=== PATIENT | female | born 2000 | race Two or more races ===

== ENCOUNTER → 2025-07-21 | Outpatient (CLI) | payer MEDICAID, SELFPAY ==
--- NOTE | 2025-07-21 12:30 | XR_ITS ---
Examination: Complete OB ultrasound greater than 14 weeks Date and time of exam: July 21, 2025 1304 hours INDICATIONS: Encounter for supervision of normal unspecified Findings: Viable intrauterine single fetus with single amniotic sac presentation cephalic spine maternal right Cardiac motion 155 BPM Placenta anterior grade 2 Vocal cord insertion seen Amniotic fluid index 12.3 cm Cervix 4.4 cm Ovaries obscured by bowel gas. Composite estimated gestational age based on BPD, head circumference, abdominal circumference, femur length is 29 weeks 4 days Estimated weight 1312.3 g. Survey of intracranial anatomy, spinal anatomy, abdominal anatomy, four-chamber heart performed with no abnormalities identified. Impression: Viable intrauterine gestation cephalic presentation.
== END | disposition home or self-care (01) ==
PROVIDERS: PCP Family Medicine; Referring Provider Obstetrics & Gynecology; Visit Provider Obstetrics & Gynecology
DX: Z34.92 Encounter for supervision of normal pregnancy, unspecified, second trimester (principal); Z3A.29 29 weeks gestation of pregnancy
CPT/HCPCS: 76805

== ENCOUNTER 2025-08-07 14:23 | Outpatient (AMB) | payer MEDICAID, SELFPAY ==
--- NOTE | 2025-08-07 14:29 | OBCLNT_ITS ---
Vital Signs 08/07/25 14:34 Height 1.7 m Height Method Stated Weight 94.064 kg Weight Measurement Method Standing Scale BMI 32.4 BP 105/68 Blood Pressure Source Automatic Cuff Blood Pressure Location Right Upper Arm Position Sitting Respiration 17 Pulse 76 Pulse Source Monitor Temp 97.6 F Temp Source Temporal Artery Scan Pulse Oximetry (%) 96 Oxygen Delivery Method Room Air Allergies/Home Meds Allergies & Medications Allergies No Known Allergies Allergy (Verified 08/07/25 14:35) Intake Visit Data Collection New Patient or Established: Established Patient (seen at [facility] within 3 years) Reason for Visit:: OB TRANSFER Seen by Clinical Staff ONLY (RN/MA): No Hotel Custodian Required: No Do You Feel Safe at Home: Yes Authorities Contacted: N/A PCP or OBGYN visit in last 3 months: No Hx Now: Yes Are you currently on any form of Control: No Last menstrual period: 12/31/24 Pain Present Currently: No Pain Scale Used: Talley-Garvin/Numerical Pain scale:: 0 Smoking Status Smoking Status: Never smoker Questionnaires Covid-19 Vaccine Questionnaire Has patient been vacinated for Covid-19 Have you been vacinated for Covid-19: Yes PHQ-9 PHQ-2 Over the last 2 weeks, how often have you been bothered by any of the following problems? 1. Little interest or pleasure in doing things: not at all 2. Feeling down, depressed, or hopeless: not at all Total score: 0 PHQ-9 3. Trouble falling or staying asleep, or sleeping too much: Not at all 4. Feeling tired or having little energy: Not at all 5. Poor appetite or overeating: Not at all 6. Feeling bad about yourself - or that you are a failure or have let yourself or your family down: Not at all 7. Trouble concentrating on things, such as reading the newspaper or watching television: Not at all 8. Moving or speaking so slowly that other people could have noticed? - Or the opposite - being so fidgety or restless that you have been moving around a lot more than usual: not at all 9. Thoughts that you would be better off or of hurting yourself in some way: Not at all Total score: 0 If you checked off any problems, how difficult have these problems made it for you to do your work, take care of things at home, or get along with other people?: not difficult at all Source: Developed by Drs. Efraín Campbell, Deirdre Garcia, Cirilo Graham and colleagues, with an educational marcelino from [employer]. Depression screen completed yes Social History Living Situation History Marital Status: Single Lives With: Family Housing: House Tobacco History Smoking Status: Never smoker Second Hand Smoke Exposure: No Alcohol History Alcohol Intake: Never Domestic Abuse History Do You Feel Safe at Home: Yes History of Present Illness HPI Narrative 25-year-old 4 para 1 for OBI. Patient is a transfer from [facility] with records. Her last period December 31, 2024. Estimated due date October 09, 2025. Patient has pretty sure dates she had 1 ultrasound here at [facility] OB. On 07/21/2025 patient was 29 weeks 4 and this confirms EDC of October 09, 2025. Patient reports movement. She denies social habits. Denies chronic illness. Patient had a lap abiodun. It was uncomplicated. History of chlamydia with the . She was treated with Zithromax. Father the baby is not involved and was not treated. Patient is O+, antibody screen negative, RPR nonreactive, rubella immune, hepatitis B negative, hep C negative, HIV negative, GC and Chlamydia test of cure in June were n egative. Her AFP, NIPT and carrier screens all negative. 1 hour GTT was 134 and her RPR at that time was nonreactive. A1c 5.3. And her H&H was 11.4 and 34. 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 History Past Medical History: No Hx Neurological Disorders, No Hx Cardiac Disorders, No Hx Cancer, No Hx Blood Disorders, Yes Hx Anemia (DURING ), Yes Hx Gastrointestinal Disorders, No Hx Renal Disease, No Hx Diabetes Mellitus Type 1 and No Hx Diabetes Mellitus Type 2 OB Initial Visit Menstrual History Menstrual reliability: unknown Flow: normal Menstrual regularity: irregular Monthly: No Age at menarche: 13 On control pills at conception: No OB History : 4 Para: 1 Hx Total # of Abortions (Spontaneous & Elective): 2 # of Living Children: 1 Delivery History 1st : Child's name: SMILEY STANLEY date: 03/[birth year] sex: male Gestational age at delivery (weeks): 37 Delivery type: vaginal History of depression before or after : No Infection History & Risk Evaluation History of STDs: none Patient or partner has history of Genital Herpes: No Genetic Screening & History Genetic Screening/Teratology Counseling - Includes patient, baby's father, or anyone in either family with: 1. Patient's age 35 years or older as of estimated date of delivery: No 2. Thalassemia (Macedonian, Hebrew, Mediterranean, or Background); MCV less than 80: No 3. Neural Tube Defect (Meningomyelocele, Spina Bifida, or Anencephaly): No 4. Congenital Heart Defect: No 5. Down Syndrome: No 6. Bipin-Sachs (Ashkenazi Oriental Orthodox, Cajun, Sudanese Lester): No 7. Sarah Disease (Ashkenazi Oriental Orthodox): No 8. Familial Dysautonomia (Ashkenazi Oriental Orthodox): No 9. Sickle Cell Disease or Trait (): No 10. Hemophilia or other blood disorders: No 11. Muscular Dystrophy: No 12. Cystic Fibrosis: No 13. Karol's Chorea: No 14. Mental Retardation/Autism: No 15. Other inherited genetic or chromosomal disorder: No 16. Maternal Metabolic Disorder (EG,TYPE 1 Diabetes, PKU): No 17. Patient or baby's father had a child with defects not listed above: No 18. Recurrent loss or a stillbirth: No 19. Medications (including supplements, vitamins, herbs or otc drugs)/illicit/re creational drugs/alcohol since last menstrual period: No 20. Any other: No Infection History 1. Live with someone with TB or exposed to TB: No 2. Rash or viral illness since last menstrual period: No 3. Hepatitis B,C: No Other (see comments) Source: [employer] Review of Systems Review of Systems Systems Reviewed: All systems reviewed, normal except as documented Exam General Limitations: no limitations General Appearance: alert, in no apparent distress, comfortable, cooperative, healthy appearing, well developed and well groomed Head Head exam: atraumatic, normocephalic and normal inspection Neck Neck exam: Present normal inspection, full ROM and trachea midline Chest Chest inspection: Present normal inspection and symmetric chest wall rise Resp Respiratory exam: Present normal lung sounds bilaterally Abdominal Abdominal exam: Present soft and normal bowel sounds Psych Psychiatric exam: Present normal affect and normal mood Office Procedures OBC Clinic LOC & Office Proc's Nursing/Assessment Patient Status: Established Patient OB Clinic Nursing Assessment: Medication Reconciliation, Update PMH in EMR and Vital Signs OB Clinic Coordination of Care: Complex Care and Chronic Disease 1-5, Consent,records obtained, informed consent, Education Simp Pt/Fam, Results/Orders obtained and Staff clarify orders Special Needs: Heart tones Established Patient Charge Established Patient Point Assignment: 120 Established Patient Point Charge: EP Level 4 (120-155) Assessment & Plan Diagnosis / Problem List (1) Encounter for supervision of high risk in third trimester, antepartum: Status: Acute Plan Discussed labs and dating. Continue prenatals. I offered Tdap and patient declined. Discussed labor precautions. Increase fluids and return in 2 weeks for OB check
[2025-08-07 14:34] VITALS: BP 105/68; PULSE 76; RESP 17; TEMP 36.4; O2SAT 96; BMI 32.4
== END 2025-08-07 15:11 | disposition home or self-care (01) ==
LOC: HODSOBC 14:23
PROVIDERS: PCP Family Medicine; Referring Provider Family Medicine; Supervising Provider Advanced Practice Midwife; Visit Provider Advanced Practice Midwife
DX: O09.93 Supervision of high risk pregnancy, unspecified, third trimester (principal); Z3A.00 Weeks of gestation of pregnancy not specified; Z28.21 Immunization not carried out because of patient refusal
CPT/HCPCS: 99214; G0463

== ENCOUNTER 2025-08-21 11:13 | Outpatient (AMB) | payer MEDICAID, SELFPAY ==
[2025-08-21 11:25] VITALS: BP 106/71; PULSE 98; RESP 18; TEMP 36.6; O2SAT 96; BMI 33.2
--- NOTE | 2025-08-21 11:25 | AMB.OBVISIT ---
Vital Signs 08/21/25 11:25 Height 1.7 m Height Method Stated Weight 95.935 kg Weight Measurement Method Standing Scale BMI 33.2 BP 106/71 Blood Pressure Source Automatic Cuff Blood Pressure Location Left Upper Arm Position Sitting Respiration 18 Pulse 98 Pulse Source Monitor Temp 97.9 F Temp Source Oral Pulse Oximetry (%) 96 Oxygen Delivery Method Room Air Allergies/Home Meds Allergies & Medications Allergies No Known Allergies Allergy (Verified 08/21/25 11:30) Medication Reconciliation No Known Home Medications 08/21/25 [History Confirmed 08/21/25] Intake Visit Data Collection New Patient or Established: Established Patient (seen at [facility] within 3 years) Reason for Visit:: CARE Seen by Clinical Staff ONLY (RN/MA): No Shuffle Board Operator Required: No Do You Feel Safe at Home: Yes Authorities Contacted: N/A PCP or OBGYN visit in last 3 months: Yes Hx Now: Yes Are you currently on any form of Control: No Pain Present Currently: No Pain Scale Used: Talley-Garvin/Numerical Pain scale:: 0 Smoking Status Smoking Status: Never smoker Immunizations Flu Vaccine in the Last 12 Months: No Flu Vaccine Exclusion Criteria: Refused by Patient Questionnaires Covid-19 Vaccine Questionnaire Has patient been vacinated for Covid-19 Have you been vacinated for Covid-19: Yes PHQ-9 PHQ-2 Over the last 2 weeks, how often have you been bothered by any of the following problems? 1. Little interest or pleasure in doing things: not at all 2. Feeling down, depressed, or hopeless: not at all Total score: 0 PHQ-9 3. Trouble falling or staying asleep, or sleeping too much: Not at all 4. Feeling tired or having little energy: Not at all 5. Poor appetite or overeating: Not at all 6. Feeling bad about yourself - or that you are a failure or have let yourself or your family down: Not at all 7. Trouble concentrating on things, such as reading the newspaper or watching television: Not at all 8. Moving or speaking so slowly that other people could have noticed? - Or the opposite - being so fidgety or restless that you have been moving around a lot more than usual: not at all 9. Thoughts that you would be better off or of hurting yourself in some way: Not at all Total score: 0 Source: Developed by Drs. Efraín Campbell, Deirdre Garcia, Cirilo Graham and colleagues, with an educational marcelino from [employer]. 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 Last. December 31, 2024. Estimated due date October 09, 2025. Reports movement. Denies leaking or bleeding. She has no interval complaints at this time. Denies Tdap Discussed labor precautions. Increase fluids. Discussed dates. Return in 2 weeks for OB check. Discussed safe sex 08/21/25 <del>?</del> 33w 2d 95.935 kg 106/71 absent cephalic 33 145 active Increased pressure. Denies leaking, bleeding, contractions. Reports good movement. Discussed kick count twice a day. Increase fluids. Continue prenatals. GBS next visit. Return in 2 weeks OB check LATIA Calculator Estimated Delivery Date Method Current WG Current Estimate 10/07/25 LMP (Certain) 33w 2d Other Estimates 10/02/25 Ultrasound #1 34w 0d Notes Visit Date: 08/07/25 Last Updated by: Ana Blair CNM 25 yo . lmp 12/31/24. EDC: 10/09/25 OB: O+,abs-, rpr;;nr, rub imm, hbsag-, hiv-, HC-, 07/07: GC/CT-. UT-, A1: 5.3, , NIPT/AFP carrier screen- Office Procedures OBC Clinic LOC & Office Proc's Nursing/Assessment Patient Status: Established Patient OB Clinic Nursing Assessment: Medication Reconciliation, Update PMH in EMR and Vital Signs OB Clinic Coordination of Care: Complex Care and Chronic Disease 1-5, Consent,records obtained, informed consent, Education Simp Pt/Fam, Lab and Imaging orders, Results/Orders obtained and Staff clarify orders Special Needs: Heart tones Established Patient Charge Established Patient Point Assignment: 135 Established Patient Point Charge: EP Level 4 (120-155) Assessment & Plan Diagnosis / Problem List (1) Encounter for supervision of high risk in third trimester, antepartum: Status: Acute Plan Discussed labor precautions. Kick count twice a day. Increase fluids. GBS next visit. Return in 2 weeks OB check Additional Plan Follow Up: 2 Weeks (obc)
== END 2025-08-21 12:04 | disposition home or self-care (01) ==
LOC: HODSOBC 11:13
PROVIDERS: Supervising Provider Advanced Practice Midwife; Visit Provider Advanced Practice Midwife
DX: O09.93 Supervision of high risk pregnancy, unspecified, third trimester (principal); Z3A.33 33 weeks gestation of pregnancy
CPT/HCPCS: 99214; G0463

== ENCOUNTER 2025-09-14 09:57 | Outpatient (AMB) | payer MEDICAID, SELFPAY ==
[2025-09-14 10:04] VITALS: BP 100/67; PULSE 100; RESP 18; TEMP 36.6; O2SAT 96; BMI 34.1
--- NOTE | 2025-09-14 10:04 | OBCLNT_ITS ---
Vital Signs 09/14/25 10:04 Height 1.7 m Height Method Stated Weight 98.656 kg Weight Measurement Method Standing Scale BMI 34.1 BP 100/67 Blood Pressure Source Automatic Cuff Blood Pressure Location Right Upper Arm Position Sitting Respiration 18 Pulse 100 Pulse Source Monitor Temp 97.8 F Temp Source Temporal Artery Scan Pulse Oximetry (%) 96 Oxygen Delivery Method Room Air Allergies/Home Meds Allergies & Medications Allergies No Known Allergies Allergy (Verified 09/14/25 10:05) Medication Reconciliation ferrous sulfate 325 mg (65 mg iron) tablet (Iron (ferrous sulfate)) 325 mg PO BID #60 tabs 09/03/25 [Rx Confirmed 09/14/25] Intake Visit Data Collection New Patient or Established: Established Patient (seen at [facility] within 3 years) Reason for Visit:: OBC Seen by Clinical Staff ONLY (RN/MA): No Parliamentary Counsel Required: No Do You Feel Safe at Home: Yes Authorities Contacted: N/A PCP or OBGYN visit in last 3 months: Yes Date of Last PCP or OBGYN visit: 09/03/25 Hx Now: Yes Are you currently on any form of Control: No Pain Present Currently: No Pain Scale Used: Talley-Garvin/Numerical Pain scale:: 0 Smoking Status Smoking Status: Never smoker Immunizations Flu Vaccine in the Last 12 Months: No Flu Vaccine Exclusion Criteria: Refused by Patient Questionnaires Covid-19 Vaccine Questionnaire Has patient been vacinated for Covid-19 Have you been vacinated for Covid-19: No PHQ-9 PHQ-2 Over the last 2 weeks, how often have you been bothered by any of the following problems? 1. Little interest or pleasure in doing things: not at all 2. Feeling down, depressed, or hopeless: not at all Total score: 0 PHQ-9 3. Trouble falling or staying asleep, or sleeping too much: Not at all 4. Feeling tired or having little energy: Not at all 5. Poor appetite or overeating: Not at all 6. Feeling bad about yourself - or that you are a failure or have let yourself or your family down: Not at all 7. Trouble concentrating on things, such as reading the newspaper or watching television: Not at all 8. Moving or speaking so slowly that other people could have noticed? - Or the opposite - being so fidgety or restless that you have been moving around a lot more than usual: not at all 9. Thoughts that you would be better off or of hurting yourself in some way: Not at all Total score: 0 If you checked off any problems, how difficult have these problems made it for you to do your work, take care of things at home, or get along with other people?: not difficult at all Source: Developed by Drs. Efraín Campbell, Deirdre Garcia, Cirilo Graham and colleagues, with an educational marcelino from [employer]. 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 Last. December 31, 2024. Estimated due date October 09, 2025. Reports movement. Denies leaking or bleeding. She has no interval complaints at this time. Denies Tdap Discussed labor precautions. Increase fluids. Discussed dates. Return in 2 weeks for OB check. Discussed safe sex 08/21/25 -?-?-?-?-?-?-?-?-?-?-?-?- 33w 2d 95.935 kg 106/71 absent cephalic 33 145 active Increased pressure. Denies leaking, bleeding, contractions. Reports good movement. Discussed kick count twice a day. Increase fluids. Continue prenatals. GBS next visit. Return in 2 weeks OB check 09/03/25 -?-?-?-?-?-?-?-?-?-?-?-?- 35w 1d 97.976 kg 114/71 absent cephalic 35 145 active No complaints of pain. Occasional contraction. Denies leaking. Reports good movement GBS today. Iron twice a day ordered. Increase iron foods. Discussed kick count twice a day. And return in 2 weeks OB check 09/14/25 -?-?-?-?-?-?-?-?-?-?-?-?- 36w 5d 98.656 kg 100/67 absent cephalic 36 140 active no complaints of UC,bleeding or leaking. reports good movement review GBS, discuss labor precaution, fkc bid, discuss danger s/s and ER precaution LATIA Calculator Estimated Delivery Date Method Current WG Current Estimate 10/07/25 LMP (Certain) 36w 5d Other Estimates 10/02/25 Ultrasound #1 37w 3d 10/07/25 Manual 36w 5d final latia: 09/28 Notes Visit Date: 09/14/25 Last Updated by: Ana Blair CNM 09/14: gbs- Visit Date: 09/03/25 Last Updated by: Ana Blair CNM 07/09: , 1 hr gtt wnl, rpr;;nr Visit Date: 08/07/25 Last Updated by: Ana Blair CNM 25 yo . lmp 12/31/24. EDC: 10/09/25 OB: O+,abs-, rpr;;nr, rub imm, hbsag-, hiv-, HC-, 07/07: GC/CT-. UT-, A1: 5.3, , NIPT/AFP carrier screen- Office Procedures OBC Clinic LOC & Office Proc's Nursing/Assessment Patient Status: Established Patient OB Clinic Nursing Assessment: Medication Reconciliation, Update PMH in EMR and Vital Signs OB Clinic Coordination of Care: Complex Care and Chronic Disease 1-5, Education Complex Pt/Fam, Consent,records obtained, informed consent, Lab and Imaging orders, Results/Orders obtained and Staff clarify orders Special Needs: Heart tones Established Patient Charge Established Patient Point Assignment: 140 Established Patient Point Charge: EP Level 4 (120-155) Assessment & Plan Diagnosis / Problem List (1) Encounter for supervision of high risk in third trimester, antepartum: Status: Acute Plan discuss labor precaution, fkc bid, danger s/s and ER precaution. rtc 1 week obc Additional Plan Follow Up: 1 Week (obc)
== END 2025-09-14 10:18 | disposition home or self-care (01) ==
LOC: HODSOBC 09:57
PROVIDERS: Supervising Provider Advanced Practice Midwife; Visit Provider Advanced Practice Midwife
DX: O09.93 Supervision of high risk pregnancy, unspecified, third trimester (principal); Z3A.36 36 weeks gestation of pregnancy
CPT/HCPCS: 99214; G0463

== ENCOUNTER 2025-09-22 16:20 | Observation (INO) | payer MEDICAID, SELFPAY ==
[2025-09-22] VITALS (11 sets, daily range): BP systolic 121; BP diastolic 75; PULSE 79–92; RESP 17–98; TEMP 36.8; O2SAT 97–98; BMI 34.6
[2025-09-22 17:06] LABS: ROM Kit Exp Date# 04/11/28; ROM Kit Lot # 58106258; ROM Swab Mixed By: CA; Swb Mxed in Solvent 1 min? Yes
[2025-09-22 17:07] LABS: Rupture of Fetal Membranes Negative (Negative)
== END 2025-09-22 17:25 | disposition home or self-care (01) ==
PROVIDERS: Admitting Provider Advanced Practice Midwife; Visit Provider Advanced Practice Midwife
DX: Z34.83 Encounter for supervision of other normal pregnancy, third trimester (principal); Z3A.37 37 weeks gestation of pregnancy
CPT/HCPCS: 59025; 59899; 84112

== ENCOUNTER 2025-09-23 10:45 | Outpatient (AMB) | payer MEDICAID, SELFPAY ==
[2025-09-23 11:07] VITALS: BP 115/72; PULSE 103; RESP 18; TEMP 36.2; O2SAT 98
--- NOTE | 2025-09-23 11:07 | OBCLNT_ITS ---
Vital Signs 09/23/25 11:07 Weight 100.811 kg Weight Measurement Method Standing Scale BP 115/72 Blood Pressure Source Automatic Cuff Blood Pressure Location Left Upper Arm Position Sitting Respiration 18 Pulse 103 H Pulse Source Monitor Temp 97.2 F Temp Source Oral Pulse Oximetry (%) 98 Oxygen Delivery Method Room Air Allergies/Home Meds Allergies & Medications Allergies No Known Allergies Allergy (Verified 09/23/25 11:08) Medication Reconciliation ferrous sulfate 325 mg (65 mg iron) tablet (Iron (ferrous sulfate)) 325 mg PO BID #60 tabs 09/03/25 [Rx Confirmed 09/23/25] Immunizations Immunizations Flu Vaccine in the Last 12 Months: No Flu Vaccine Exclusion Criteria: No Exclusion Criteria Care OB Visit Log OB Flowsheet Initial Weight: Not Recorded Date -?-?-?-?-?-?-?-?-?-?-?-?- EGA Weight BP Alb Glu CTX Pres Fundal ht FHR Mov Dilation Station Effacement Hx Notes Visit Note 08/07/25 -?-?-?-?-?-?-?-?-?-?-?-?- 31w 2d 94.064 kg 105/68 absent unknown 30 145 active 25-year-old 4 para 1 for OBI. Last. December 31, 2024. Estimated due date October 09, 2025. Reports movement. Denies leaking or bleeding. She has no interval complaints at this time. Denies Tdap Discussed labor precautions. Increase fluids. Discussed dates. Return in 2 weeks for OB check. Discussed safe sex 08/21/25 -?-?-?-?-?-?-?-?-?-?-?-?- 33w 2d 95.935 kg 106/71 absent cephalic 33 145 active Increased pressure. Denies leaking, bleeding, contractions. Reports good movement. Discussed kick count twice a day. Increase fluids. Continue prenatals. GBS next visit. Return in 2 weeks OB check 09/03/25 -?-?-?-?-?-?-?-?-?-?-?-?- 35w 1d 97.976 kg 114/71 absent cephalic 35 145 active No complaints of pain. Occasional contraction. Denies leaking. Reports good movement GBS today. Iron twice a day ordered. Increase iron foods. Discussed kick count twice a day. And return in 2 weeks OB check 09/14/25 -?-?-?-?-?-?-?-?-?-?-?-?- 36w 5d 98.656 kg 100/67 absent cephalic 36 140 active no complaints of UC,bleeding or leaking. reports good movement review GBS, discuss labor precaution, fkc bid, discuss danger s/s and ER precaution LATIA Calculator Estimated Delivery Date Method Current WG Current Estimate 10/07/25 LMP (Certain) 38w 0d Other Estimates 10/02/25 Ultrasound #1 38w 5d 10/07/25 Manual 38w 0d final latia: 09/28 Notes Visit Date: 09/14/25 Last Updated by: Ana Blair CNM 09/14: gbs- Visit Date: 09/03/25 Last Updated by: Ana Blair CNM 07/09: , 1 hr gtt wnl, rpr;;nr Visit Date: 08/07/25 Last Updated by: Ana Blair CNM 25 yo . lmp 12/31/24. EDC: 10/09/25 OB: O+,abs-, rpr;;nr, rub imm, hbsag-, hiv-, HC-, 07/07: GC/CT-. UT-, A1: 5.3, , NIPT/AFP carrier screen- Office Procedures OBC Clinic LOC & Office Proc's Nursing/Assessment Patient Status: Established Patient OB Clinic Nursing Assessment: Medication Reconciliation, Update PMH in EMR and V ital Signs OB Clinic Coordination of Care: Consent,records obtained, informed consent, Education Simp Pt/Fam, Lab and Imaging orders, Results/Orders obtained and Staff clarify orders Special Needs: Heart tones Established Patient Charge Established Patient Point Assignment: 110 Established Patient Point Charge: EP Level 3 (80-115) Assessment & Plan Diagnosis / Problem List (1) Encounter for supervision of high risk in third trimester, antepartum: Status: Acute Plan Labor precautions twice a day. Discussed kick count. Continue prenatals. Increase fluids. Return week OB check
== END 2025-09-23 11:43 | disposition home or self-care (01) ==
LOC: HODSOBC 10:45
PROVIDERS: Supervising Provider Advanced Practice Midwife; Visit Provider Advanced Practice Midwife
DX: O09.93 Supervision of high risk pregnancy, unspecified, third trimester (principal); Z3A.38 38 weeks gestation of pregnancy
CPT/HCPCS: 99213; G0463

== ENCOUNTER 2025-09-25 22:16 | Emergency (ER) | payer MEDICAID, SELFPAY ==
[2025-09-25 22:18] VITALS: BMI 34.4
[2025-09-25 22:39] VITALS: BP 117/78; PULSE 77; RESP 18; TEMP 36.7; O2SAT 98
--- NOTE | 2025-09-25 22:59 | PD.EDURI ---
Upper Respiratory Inf. RME/HPI General Chief Complaint: General Adult/Misc Complain Stated Complaint: EPISODE OF COUGH AND NOSE BLEED Time Seen by Provider: 09/25/25 22:45 Arrival date/time: 09/25/25 22:16 25F with no significant PMH presents to ED with several days of cough, nasal congestion, and some nosebleed. Patient is 38 weeks , but denies ab pain and vaginal bleeding. No sore throat. Limitations: no limitations Related Data Previous Rx's ?Medication ?Instructions ?Recorded ferrous sulfate 325 mg (65 mg 325 mg PO BID #60 tabs 09/03/25 iron) tablet (Iron (ferrous sulfate)) Allergies Allergy/AdvReac Type Severity Reaction Status Date / Time No Known Allergies Allergy Verified 09/23/25 11:08 Review of Systems Review of Systems Systems Reviewed: All systems reviewed, normal except as documented ENT Ears, Nose, Mouth, and Throat: Reports as per HPI, Reports epistaxis and Reports nasal congestion Respiratory Respiratory: Reports as per HPI and Reports cough Past Medical History Past Medical History NEUROLOGIC: Negative Neurological Disorders CARDIAC: Negative Cardiac Disorders or Congestive Heart Failure RESPIRATORY: Negative Chronic Obstructive Pulmonary Disease (COPD) GASTROINTESTINAL: Positive Gastrointestinal Disorders and Gall Bladder Disease; Negative Hepatitis GENITOURINARY: Negative Genitourinary Disorders or Renal Disease REPRODUCTIVE: Negative Pelvic Inflammatory Disease MUSCULOSKELETAL: Negative Musculoskeletal Disorders ENDOCRINE: Negative Endocrine Disorders, Diabetes Mellitus Type 1 or Diabetes Mellitus Type 2 HEMATOLOGIC: Positive Anemia (DURING ); Negative Blood Disorders OTHER HISTORY: Negative Hospitalization, Autoimmune Disease, Down Syndrome, Developmental Delay, Shingles, Falls, Blood Transfusions, Blood Transfusion Reaction, Anesthesia Reactions, Organ Transplant, Chemotherapy, Radiation Therapy, Hyperbaric Therapy, MRSA, VRSA, Vancomycin-Resistant Enterococci, Human Immunodeficiency Virus (HIV), Chicken Pox, Measles, Mumps, Rubella (Spanish Measles), Pertussis, Clostridium Difficile or Cancer Family History FAMILY HISTORY: Positive Family Respiratory Disorders (GRANDPA WITH WATER IN LUNGS), Family Gastrointestinal Problems (GALLBLADDER) and Family Cancer (2 AUNTS); Negative Family Psychiatric Problems, Family Cardiac Disorders, Family Surgery (UNSURE) or Family Anesthesia Reaction Surgical History SURGICAL: Negative Section or Organ Transplant Social History SMOKING STATUS: Never smoker SECOND HAND EXPOSURE: No SUBSTANCE USE: does not use ED Exam General Limitations: Present no limitations General appearance: Present alert and in no apparent distress Head Head exam: Present atraumatic ENT ENT exam: Present normal oropharynx and mucous membranes moist Expanded ENT Exam Nasal speculum exam: Bilateral: epistaxis (raw skin, no active bleeding) Neck Neck exam: Present normal inspection, full ROM and trachea midline Chest Chest inspection: Present normal inspection and symmetric chest wall rise Respiratory Respiratory exam: Present normal lung sounds bilaterally Neurological Exam Neurological exam: Present alert and oriented X3 Psychiatric Psychiatric exam: Present normal affect and normal mood Skin Skin exam: Present warm, dry, intact and normal color Course Quality Measures none Orders Category Date Time Status COVID-19 Antigen (In-House) Stat Lab 09/25/25 22:59 Completed Influenza A & B Rapid Panel Stat Lab 09/25/25 22:59 Completed Vital Signs Vital signs: Vital Signs Temperature 98.1 F 09/25/25 22:39 Pulse Rate 77 09/25/25 22:39 Respiratory Rate 18 09/25/25 22:39 Blood Pressure 117/78 09/25/25 22:39 Pulse Oximetry (%) 98 09/25/25 22:39 Oxygen Delivery Method Room Air 09/25/25 22:39 O2 at 98% on RA and WNLs Upper Respiratory Infection MDM Narrative MDM Narrative:: 25F with no significant PMH presents to ED with several days of cough, nasal congestion, and some nosebleed. Patient is 38 weeks , but denies ab pain and vaginal bleeding. No sore throat. Physical exam reveals some raw skin in nares. No active bleeding. Clear oropharynx and lungs. Normal WOB. Patient declines preemptive nasal cauterization. Swabs neg. Waste And Batting Waste Chopper given. Patient data External records reviewed:: [facility] previous records Clinical information provided by:: patient Social determinants that could affect healthcare access:: none Patient has the following chronic illnesses:: none How is presenting disease/condition affected by chronic disease/condition?: no chronic disease Evaluation data The following diagnostics were reviewed and interpreted by me:: lab results Lab and/or radiology exams considered but not ordered:: ordered Interpretation Summary: above Medications / Prescriptions Medications or Prescriptions considered but not ordered:: not ordered Medication administrations:: n/a Consultations Consultation(s) initiated? (list below): No Diagnosis Upper Respiratory Differential Diagnosis: upper respiratory infection, croup, otitis media, sinusitis, viral infection, bronchitis, influenza, pharyngitis and other (epistaxis) Most likely diagnosis given after review of the tests above:: URI and epistaxis Admission Indicated Admission indicated?: not indicated Admission Request Was there a request for admission?: No Disposition Plan Disposition Plan: Discharge Discharge Attestation Discharge Attestation: The patient and all family members were given an opportunity to ask questions and understood the discharge instructions. Discharge instructions specifically effects, indications for sooner follow up or return to the emergency department, and the expected course of current diagnosis. Patient condition: Stable Discharge Plan Plan Patient Disposition: HOME (Self Care) Discharge Disposition comment: Stable Prescriptions/Referrals Prescriptions/Med Rec: No Action ferrous sulfate [Iron (ferrous sulfate)] 325 mg (65 mg iron) tablet 325 mg PO BID Qty: 60 3RF Referrals: Kenzie Abreu PA-C [Primary Care Provider] - In 1 week Problem List Clinical Impression: URI (upper respiratory infection), Epistaxis Patient/Caregiver Discharge Instructions Education Materials: ED Epistaxis (Adult), ED URI, Viral, No Abx (Adult) Additional Instructions: Please follow-up with PCP within 24-48 hours and return immediately if symptoms worsen. Benadryl is good for cough, congestion, and sleep. Keep hydrated. Advance diet as tolerated. Print Language: Icelandic Stand Alone Forms: Patient Portal Info Letter MAX/KUMAR Supervising Physician MAX/KUMAR Supervising Physician: Dr. Medina
[2025-09-25 23:38] LABS: COVID-19 Antigen (In-House) Negative (Negative); Influenza A Ag Negative; Influenza B Ag Negative
[2025-09-25 23:43] VITALS: RESP 16
== END 2025-09-25 23:44 | disposition home or self-care (01) ==
PROVIDERS: Physician Assistant; Emergency Provider Emergency Medicine; PCP Physician Assistant
DX: O26.893 Other specified pregnancy related conditions, third trimester (principal); R04.0 Epistaxis; O99.513 Diseases of the respiratory system complicating pregnancy, third trimester; J06.9 Acute upper respiratory infection, unspecified; Z3A.38 38 weeks gestation of pregnancy
CPT/HCPCS: 87502; 87811; 99281

== ENCOUNTER 2025-09-29 13:46 | Outpatient (AMB) | payer MEDICAID, SELFPAY ==
--- NOTE | 2025-09-29 14:14 | OBCLNT_ITS ---
Vital Signs 09/29/25 14:15 Height 1.7 m Height Method Stated Weight 101.605 kg Weight Measurement Method Standing Scale BMI 35.2 BP 123/74 Blood Pressure Source Automatic Cuff Blood Pressure Location Left Upper Arm Position Sitting Respiration 18 Pulse 84 Pulse Source Monitor Temp 97.2 F Temp Source Oral Pulse Oximetry (%) 98 Oxygen Delivery Method Room Air Allergies/Home Meds Allergies & Medications Allergies No Known Allergies Allergy (Verified 09/29/25 14:15) Medication Reconciliation ferrous sulfate 325 mg (65 mg iron) tablet (Iron (ferrous sulfate)) 325 mg PO BID #60 tabs 09/03/25 [Rx Confirmed 09/29/25] Immunizations Immunizations Flu Vaccine in the Last 12 Months: No Flu Vaccine Exclusion Criteria: No Exclusion Criteria Care OB Visit Log OB Flowsheet Initial Weight: Not Recorded Date -?-?-?-?-?-?-?-?-?-?-?-?- EGA Weight BP Alb Glu CTX Pres Fundal ht FHR Mov Dilation Station Effacement Hx Notes Visit Note 08/07/25 -?-?-?-?-?-?-?-?-?-?-?-?- 31w 2d 94.064 kg 105/68 absent unknown 30 145 active 25-year-old 4 para 1 for OBI. Last. December 31, 2024. Estimated due date October 09, 2025. Reports movement. Denies leaking or bleeding. She has no interval complaints at this time. Denies Tdap Discussed labor precautions. Increase fluids. Discussed dates. Return in 2 weeks for OB check. Discussed safe sex 08/21/25 -?-?-?-?-?-?-?-?-?-?-?-?- 33w 2d 95.935 kg 106/71 absent cephalic 33 145 active Increased pressure. Denies leaking, bleeding, contractions. Reports good movement. Discussed kick count twice a day. Increase fluids. Continue prenatals. GBS next visit. Return in 2 weeks OB check 09/03/25 -?-?-?-?-?-?-?-?-?-?-?-?- 35w 1d 97.976 kg 114/71 absent cephalic 35 145 active No complaints of pain. Occasional contraction. Denies leaking. Reports good movement GBS today. Iron twice a day ordered. Increase iron foods. Discussed kick count twice a day. And return in 2 weeks OB check 09/14/25 -?-?-?-?-?-?-?-?-?-?-?-?- 36w 5d 98.656 kg 100/67 absent cephalic 36 140 active no complaints of UC,bleeding or leaking. reports good movement review GBS, discuss labor precaution, fkc bid, discuss danger s/s and ER precaution 09/23/25 -?-?-?-?-?-?-?-?-?-?-?-?- 38w 0d 100.811 kg 115/72 absent cephalic 37 15 6 active Reports good movement. Denies leaking or bleeding. No complaints of contractions Kick count twice a day. Discussed labor precautions and danger signs symptoms. Increase fluids. Return in a week OB check 09/29/25 -?-?-?-?-?-?-?-?-?-?-?-?- 38w 6d 101.605 kg 123/74 absent cephalic 38 15 6 active Reports good movement. Denies leaking, bleeding, contractions Discussed kick count twice a day. Discussed labor precautions and comfort measures. Return in a week OB check LATIA Calculator Estimated Delivery Date Method Current WG Current Estimate 10/07/25 LMP (Certain) 38w 6d Other Estimates 10/02/25 Ultrasound #1 39w 4d 10/07/25 Manual 38w 6d final latia: 09/28 Notes Visit Date: 09/14/25 Last Updated by: Ana Blair CNM 09/14: gbs- Visit Date: 09/03/25 Last Updated by: Ana Blair CNM 07/09: , 1 hr gtt wnl, rpr;;nr Visit Date: 08/07/25 Last Updated by: Ana Blair CNM 25 yo . lmp 12/31/24. EDC: 10/09/25 OB: O+,abs-, rpr;;nr, rub imm, hbsag-, hiv-, HC-, 07/07: GC/CT-. UT-, A1: 5.3, , NIPT/AFP carrier screen- Office Procedures OBC Clinic LOC & Office Proc's Nursing/Assessment Patient Status: Established Patient OB Clinic Nursing Assessment: Medication Reconciliation, Update PMH in EMR and Vital Signs OB Clinic Coordination of Care: Consent,records obtained, informed consent, Education Simp Pt/Fam, Lab and Imaging orders, Results/Orders obtained and Staff clarify orders Special Needs: Heart tones Established Patient Charge Established Patient Point Assignment: 110 Established Patient Point Charge: EP Level 3 (80-115) Assessment & Plan Diagnosis / Problem List (1) Encounter for supervision of high risk in third trimester, antepartum: Status: Acute Plan Reviewed labor precautions. Kick count twice a day. Resolving cold. Discussed comfort measures. Discussed ER precautions return week OB check Additional Plan Follow Up: 1 Week (obc)
[2025-09-29 14:15] VITALS: BP 123/74; PULSE 84; RESP 18; TEMP 36.2; O2SAT 98; BMI 35.2
== END 2025-09-29 14:51 | disposition home or self-care (01) ==
LOC: HODSOBC 13:46
PROVIDERS: Supervising Provider Advanced Practice Midwife; Visit Provider Advanced Practice Midwife
DX: O09.93 Supervision of high risk pregnancy, unspecified, third trimester (principal); Z3A.38 38 weeks gestation of pregnancy
CPT/HCPCS: 99213; G0463

== ENCOUNTER 2025-10-03 07:11 | Inpatient (IN) | payer MEDICAID, SELFPAY ==
[2025-10-03] VITALS (36 sets, daily range): BP systolic 104–145; BP diastolic 58–77; PULSE 64–203; RESP 16–18; TEMP 36.7–36.9; O2SAT 96–100; BMI 34.4
[2025-10-03 07:56] LABS: Basophils # (Auto) 0.0 Thou/mm3 (0.0-0.2); Basophils % (Auto) 0 % (0-2.5); Eosinophils # (Auto) 0.1 Thou/mm3 (0.0-0.5); Eosinophils % (Auto) 1 % (0-10); Hematocrit 40.3 % (36.0-46.0); Hemoglobin 14.1 g/dL (12.0-16.0); Immature Granulocytes Auto 0.05 Thou/mm3 (0.00-0.00); Lymphocytes # (Auto) 1.7 Thou/mm3 (1.0-4.8); Lymphocytes % (Auto) 17 % (10-50); Mean Corpuscular HGB Conc 35.0 g/dl (31.0-37.0); Mean Corpuscular Hemoglobin 31.7 pg (25.0-35.0); Mean Corpuscular Volume 91 fL (80-100); Monocytes # (Auto) 0.4 Thou/mm3 (0.0-0.8); Monocytes % (Auto) 4 % (0-12); Neutrophils # (Auto) 7.7 Thou/mm3 (1.8-7.7); Neutrophils % (Auto) 78 % (37-80); Nucleated Red Blood Cell # 0.00 Thou/mm3 (0.00-0.00); Nucleated Red Blood Cell % 0 /100 WBC (0); Platelet Count 168 Thou/mm3 (140-440); RDW Standard Deviation 44.1 fL (36.4-46.3); Red Blood Count 4.45 Miln/mm3 (4.00-5.20); White Blood Count 9.9 Thou/mm3 (3.6-11.0)
[2025-10-03] MEDS: OXYTOCIN in NS 20 units 20 UNIT/1,000 ML BAG 125 UNIT IV (08:02)
[2025-10-03] MEDS: LIDOCAINE HCL 1% 20 ML VIAL INFL (08:20)
[2025-10-03] MEDS: BENZO/LANO/ALOE (Dermoplast) 60 GM CAN 1 SPRAY TOP (08:25)
[2025-10-03 08:45] LABS: Syphilis Nonreactive (Nonreactive)
--- NOTE | 2025-10-03 08:54 | PD.LDHP ---
Documentation for date of: 10/03/25 OB Labor/Induct. HPI History of Present Illness Chief complaint: labor : 4 Para: 1 Term pregnancies: 1 pregnancies: 0 Living children: 1 History of Abortions: Spontaneous and Elective: 2 History of Vaginal deliveries: 1 History of sections: No History of : No LATIA: 10/09/25 Gestational Age (weeks): 39 Gestational Age (days): 1 History of present illness: came in labor, she was seeing Dr Ravi and then Ana RODRIGUEZ GBS negative History of Present Adequate Care: Yes Abnormal ultrasound findings: none Obstetrical complications: other (previous vaccuum delivery ) Medical complications: none Labs Maternal Blood Type: O Pos Labs: Positive: Rubella Titre, Negative: RPR, Hepatitis B, HIV, Chlamydia, Gonorrhea and Group Beta Strep and Unknown: Herpes Type 1, Herpes Type 2 and Covid-19 Review of Systems Review of Systems Systems Reviewed: All systems reviewed, normal except as documented Past Medical History Surgical History SURGICAL: Negative Section Meds Home Medications and Allergies Allergies Allergy/AdvReac Type Severity Reaction Status Date / Time No Known Allergies Allergy Verified 09/29/25 14:15 OB Exam Physical Exam Vital signs: Temp Pulse Resp BP Pulse Ox O2 Del Method 98.5 F 75 18 135/70 H 100 Room Air 10/03/25 08:26 10/03/25 08:44 10/03/25 08:26 10/03/25 08:44 10/03/25 08:52 10/03/25 08:26 Narrative: Size equal to dates uterus non tender regular/ contractions non tender FHR is category 1/ feta presentation is vertex cervix 7 to 8 cm and intact OB Results Labs 10/03/25 07:40 Labs: Short CBC 10/03/25 Range/Units 07:40 WBC 9.9 (3.6-11.0) Thou/mm3 Hgb 14.1 (12.0-16.0) g/dL Hct 40.3 (36.0-46.0) % Plt Count 168 (140-440) Thou/mm3 OB Assessment & Plan Assessment and Plan (1) 39 weeks gestation of : Status: Acute (2) Labor abnormality: Status: Acute Additional Plan Induction method: none Plan: anticipate NVD Additional Plan Comment: GBS negative / patient progressing quickly
--- NOTE | 2025-10-03 08:59 | OBDSUM_ITS ---
Data ([place]) Data Hx Section: No Maternal Blood Type: O Pos : 4 Term: 1 : 0 Livin Abortions: Spontaneous & Theraputic: 2 Delivery Data ([place]) Labor Data Initiation of labor: Spontaneous Induction/Augmentation Agent: None ROM date: 10/03/25 ROM time: 07:56 Amniotic membrane rupture type: Artificial Amniotic fluid description: Clear Delivery Data Onset of labor date: 10/03/25 Onset of labor time: 03:30 Complete dilation date: 10/03/25 Complete dilation time: 07:56 [place] delivery date: 10/03/25 delivery time: 07:59 Placenta delivery date: 10/03/25 Placenta delivery time: 08:09 Stage 1 total time: Labor - Stage 1 Duration 4 hours and 26 minutes Delivered by: Ginny Sanchez Delivery nurse: Argelia Patterson nurse: Carolee Packager Hand at delivery: No Support person(s) at delivery: Grandmother of baby Other staff at delivery: [email or web address], supervisor fabrication Method Delivery method: Normal Vaginal Delivery Presentation: Vertex Anesthesia Type Anesthesia Type: Local Delivery Room Medications Delivery room medications: Cytotec 800 IA Placenta Placenta delivery description: Spontaneous Cord blood sent to lab: Yes cord blood collection: Cord Blood Type Episiotomy Episiotomy description: None Lacerations #1: Perineal: 2nd degree Periurethral: abrasion / but bleeding and one suture placed of 2,0 vicryl #2: Perineal: 2nd degree Periurethral: one suture placed as bleeding under local and patent urethra by Jules mercedesbin Perineal repair Sutures used for repair: 3.0 Vicryl EBL Estimated blood loss (ml): 180 Umbilical Cord cord description: 3 Vessels Complications Complications: none Data ([place]) [place] Data order: 1 [place]'s gender: Female Identification band number: [id number] weight (gms): 3360 g Weight (pounds): 7 lbs and 6.5 ozs 1 minute: 8 5 minutes: 9
[2025-10-03] MEDS: IBUPROFEN TAB 400 MG TABLET 800 MG PO ×2 (10:00→20:52)
[2025-10-03 14:33] LABS: Basophils # (Auto) 0.0 Thou/mm3 (0.0-0.2); Basophils % (Auto) 0 % (0-2.5); Eosinophils # (Auto) 0.0 Thou/mm3 (0.0-0.5); Eosinophils % (Auto) 0 % (0-10); Hematocrit 36.2 % (36.0-46.0); Hemoglobin 12.5 g/dL (12.0-16.0); Immature Granulocytes Auto 0.07 Thou/mm3 (0.00-0.00); Lymphocytes # (Auto) 1.2 Thou/mm3 (1.0-4.8); Lymphocytes % (Auto) 8 % (10-50); Mean Corpuscular HGB Conc 34.5 g/dl (31.0-37.0); Mean Corpuscular Hemoglobin 31.9 pg (25.0-35.0); Mean Corpuscular Volume 92 fL (80-100); Monocytes # (Auto) 0.7 Thou/mm3 (0.0-0.8); Monocytes % (Auto) 5 % (0-12); Neutrophils # (Auto) 12.6 Thou/mm3 (1.8-7.7); Neutrophils % (Auto) 86 % (37-80); Nucleated Red Blood Cell # 0.00 Thou/mm3 (0.00-0.00); Nucleated Red Blood Cell % 0 /100 WBC (0); Platelet Count 179 Thou/mm3 (140-440); RDW Standard Deviation 45.1 fL (36.4-46.3); Red Blood Count 3.92 Miln/mm3 (4.00-5.20); White Blood Count 14.6 Thou/mm3 (3.6-11.0)
[2025-10-04] VITALS: BP 117/74; PULSE 73; RESP 20; TEMP 36.8; O2SAT 97
[2025-10-04 04:10] VITALS: BP 115/70; PULSE 72; RESP 18; TEMP 36.6; O2SAT 96
[2025-10-04 07:53] VITALS: BP 119/75; PULSE 78; RESP 18; TEMP 36.9; O2SAT 97
--- NOTE | 2025-10-04 07:58 | PD.LDPPPRG ---
Subjective Subjective Interval history: Delivery type: Patient doing well this morning. No acute complaints. Ambulating, tolerating p.o., and voiding without difficulty. HTN/Pre-E screen negative: No CP, SOB, BARILLAS, visual changes, RUQ pain. : Yes Lochia: diminishing Bowel: Flatus + / BM + UOP: Voiding Exam Vital Signs Temp Pulse Resp BP Pulse Ox O2 Del Method 98.5 F 78 18 119/75 97 Room Air 10/04/25 07:53 10/04/25 07:53 10/04/25 07:53 10/04/25 07:53 10/04/25 07:53 10/04/25 07:53 Constitutional Constitutional: no acute distress Routine HEENT Exam Head: Present normocephalic and atraumatic Eye: Present EOMI and PERRL ENT: Present mucous membranes moist Routine Neck Exam Neck: Present supple and trachea midline Routine Respiratory Exam Respiratory: Present chest non-tender, lungs clear, normal breath sounds and no resp distress Routine Cardiovascular Exam Cardiovascular: Present RRR Routine Abdominal Exam Abdominal: Present soft and normoactive bowel sounds Routine Extremities Exam Extremities: Present full ROM Routine Skin Exam Skin: Present intact, dry and warm Routine Neurological Exam Neurological: Present alert, oriented X3 and CN II-XII intact Routine Psychiatric Exam Psychiatric: Present normal affect and normal thought process Objective Labs 10/03/25 14:13 Labs: Laboratory Results - last 24 hr 10/03/25 10/03/25 10/03/25 07:40 08:23 14:13 WBC 9.9 14.6 H D RBC 4.45 3.92 L Hgb 14.1 12.5 Hct 40.3 36.2 MCV 91 92 MCH 31.7 31.9 MCHC 35.0 34.5 RDW Std Deviation 44.1 45.1 Plt Count 168 179 Neut % (Auto) 78 86 H Lymph % (Auto) 17 8 L [place] % (Auto) 4 5 Eos % (Auto) 1 0 Baso % (Auto) 0 0 Neut # (Auto) 7.7 12.6 H Lymph # (Auto) 1.7 1.2 [place] # (Auto) 0.4 0.7 Eos # (Auto) 0.1 0.0 Baso # (Auto) 0.0 0.0 Immature Gran # (Auto) 0.05 H 0.07 H Absolute Nucleated RBC 0.00 0.00 Immature Gran % 1 H 1 H Nucleated RBC % 0 0 Syphilis Serology Nonreactive Blood Type O Positive Antibody Screen NEGATIVE Blood Bank Wristband ID Yes Assessment & Plan Problem List (1) 39 weeks gestation of : Status: Resolved (2) Labor abnormality: Status: Acute (3) Vaginal delivery: Status: Acute Assessment and plan: 1. Continue routine /post-op care 2. Labs reviewed, cbc appropriate 3. Remove dressing/Guzman 4. Encourage to ambulate, shower 5. Encourage PO intake, breast feeding Time Spent With Patient Time: Total time spent is greater than 50% in coordination of care (as documented) at patient's floor/unit and/or counseling patient:
--- NOTE | 2025-10-04 08:00 | PD.LDDS ---
DS: Providers Provider Date of admission: 10/03/25 07:36 Primary care physician: Physician No Primary/Family Admitting Provider: Ginny Sanchez MD Attending Provider on Admission: Rafa Bah MD Consults: 10/03/25 09:02 Referral Routine Comment: Attending Provider on DC: Rafa Bah MD Discharging Provider: Rafa Bah MD DS: Diagnosis Discharge Diagnosis (1) Vaginal delivery: Status: Acute (2) Labor abnormality: Status: Acute (3) Encounter for supervision of high risk in third trimester, antepartum: Status: Acute (4) care following vaginal delivery: Status: Acute Problem List Completed Was Problem List Reviewed/Reconciled?: Yes Summary/Hosp Course Brief History: came in labor, she was seeing Dr Ravi and then Ana RODRIGUEZ GBS negative Peripartum Data Delivery Method: Normal Vaginal Delivery Episiotomy Description: None Time Spent with Patient Time attestation: Total time spent providing and/or coordinating discharge services: Exam Vital Signs Temp Pulse Resp BP Pulse Ox O2 Del Method 98.5 F 78 18 119/75 97 Room Air 10/04/25 07:53 10/04/25 07:53 10/04/25 07:53 10/04/25 07:53 10/04/25 07:53 10/04/25 07:53 Discharge Plan Plan Patient Disposition: HOME (Self Care) Patient condition on transfer: Stable Prescriptions/Referrals Prescriptions/Med Rec: New docusate sodium [Stool Softener] 100 mg capsule 100 mg PO QDAY 30 Days Qty: 30 0RF ibuprofen 600 mg tablet 600 mg PO Q6H MDD 4 PRN (Reason: fever or pain) 10 Days Qty: 40 0RF Continued ferrous sulfate [Iron (ferrous sulfate)] 325 mg (65 mg iron) tablet 325 mg PO BID Qty: 60 3RF Referrals: Ana Blair CNM [Certified Nurse Wildfire Prevention Specialist, WARP PLACER] No Primary/Family,Physician [Primary Care Provider] Patient/Caregiver Discharge Instructions Education Materials: After a Vaginal , After Delivery Concerns, Breast Care After , Incision Care After Vaginal , Nutrition While , Understanding Depression, : Caring for Yourself, Feel Healthy After Print Language: Indonesian Stand Alone Forms: Kim Award Info., Patient Portal Info Letter Discharge Order Discharge Orders: Discharge (Routine); Ordered 10/04/25 Ordered By: Rafa Bah Planned Discharge Date 10/04/25
[2025-10-04] MEDS: IBUPROFEN TAB 400 MG TABLET 800 MG PO (09:17)
== END 2025-10-04 11:55 | disposition home or self-care (01) | DRG 560 ==
LOC: S4SX 13:50 → S4NX 14:13
PROVIDERS: Admitting Provider Obstetrics & Gynecology; Visit Provider Obstetrics & Gynecology
DX: O62.9 Abnormality of forces of labor, unspecified (principal); O70.1 Second degree perineal laceration during delivery; Z3A.39 39 weeks gestation of pregnancy; Z37.0 Single live birth
CPT/HCPCS: 36415; 59025; 59409; 85025; 86780; 86850; 86900; 86901; 94762; J2590; J3490; S0191; A9270